=== PATIENT | male | born 1950 | race Caucasian/White ===

== ENCOUNTER 2020-09-01 06:14 | Day surgery (SDC) | payer MEDICARE, SELFPAY ==
[2020-07-29 12:37] VITALS: BMI 36.1
[2020-09-01] VITALS (9 sets, daily range): BP systolic 81–153; BP diastolic 43–89; PULSE 69–90; RESP 16; TEMP 36.1–36.3; O2SAT 92–100; BMI 35.9
[2020-09-01] MEDS: Lactated Ringers 1,000 ML 100 ML IV (06:43)
--- NOTE | 2020-09-01 06:53 | PCM.HP.STD ---
Problem List (1) Personal history of colonic polyps Status: Acute History of Present Illness Date of Admission: 09/01/20 The patient is a 69 year old M who presents for surveillance colonoscopy. 5 years ago he had a previous colonoscopy with a tubular adenoma resected. He has no complaints of abdominal pain bright red blood per rectum or melena. He has had a remote history of a superficial venous thrombosis related to a ankle injury and immobilization. He is not on any anticoagulants. He denies any family history of colon cancer. Past Medical History Medical History: Medical History (Last Updated 07/29/20 @ 12:36 by Clarisa Cervantes) Infected sebaceous cyst (Acute) L72.3, L08.9 BPH (benign prostatic hyperplasia) N40.0 DVT (deep venous thrombosis) I82.409 Diabetes E11.9 GERD (gastroesophageal reflux disease) K21.9 Hemorrhoid K64.9 Hyperlipidemia E78.5 Neuropathy G62.9 Osteoarthritis M19.90 Plantar fasciitis M72.2 Sleep apnea G47.30 HTN (hypertension) I10 Allergies No Known Allergies Allergy (Verified 08/28/20 08:15) Home Medications: Ambulatory Orders Medication Instructions Recorded fluticasone propionate 50 1 spray INTRANASAL PRN PRN 07/29/20 mcg/actuation nasal spray,suspension irbesartan 150 1 tab PO DAILY 07/29/20 mg-hydrochlorothiazide 12.5 mg tablet multivit,Ca,min-iron 8 mg-folic 1 tab PO DAILY 07/29/20 acid 200 mcg-lycopene 600 mcg tablet omeprazole 20 mg capsule,delayed 20 mg PO DAILY 07/29/20 release pravastatin 40 mg tablet 40 tab PO QHS 07/29/20 tamsulosin 0.4 mg capsule 0.4 cap PO DAILY 07/29/20 Surgical History: Surgical History (Last Updated 07/29/20 @ 12:36 by Clarisa Cervantes) History of colonoscopy Onset Date: ~2013 Z98.890 History of fasciotomy Z98.890 History of open reduction and internal fixation (ORIF) procedure Z98.890 History of right inguinal hernia repair Z98.890, Z87.19 History of tonsillectomy and adenoidectomy Z98.890 Smoking Status: Never smoker Tobacco Use: Non-smoker Review of Systems Constitutional: Denies: Fever, Night Sweats Cardiovascular: Denies: Chest Pain Respiratory: Denies: Cough, Shortness of Breath Gastrointestinal: Denies: Abdominal Pain, Melena Endocrine: Denies: Change in Body Habitus VTE Information - Inpt Only VTE Present on Admission: No - Physical Exam Vitals/I&O's: Vital Signs Temp Pulse Resp BP Pulse Ox 97.3 F L 90 16 153/83 H 94 09/01/20 06:33 09/01/20 06:33 09/01/20 06:33 09/01/20 06:33 09/01/20 06:33 Oxygen Delivery Method Room Air Weight: 257 lb 15.053 oz Body Mass Index (BMI) 35.9 General: Alert, Oriented x3, Cooperative, No apparent distress HEENT: Atraumatic Neck: Supple Lungs: Clear to auscultation, Normal air movement Cardiovascular: Regular rate, Regular Rhythm Abdomen: Bowel Sounds Present, Soft, Non Tender Extremities: No Calf Tenderness Neurological: - - Normal cognition Psych/Mental Status: Normal Affect Current Medications Lactated Ringer's () 1,000 mls @ 100 mls/hr IV .Q10H TALIA Last Admin: 09/01/20 06:43 Dose: 100 mls/hr Documented by: Assessment/Plan All Active Problems (Last Updated 07/29/20 @ 12:36 by Clarisa Cervantes) Personal history of colonic polyps (Acute) Infected sebaceous cyst (Acute) The patient presents via open access today to proceed with a surveillance colonoscopy with a personal history of colon polyps. He is aware of the technique, benefit, risk, alternatives. He has had an opportunity to ask and have questions answered. We will proceed at his discretion. John Upton M.D., F.A.C.S. Procedure Criteria Procedure Type: Elective COVID Risk Discussion: The surgeon/proceduralist and patient have discussed in detail the risk of exposure to and/or potential harm posed by the COVID-19 virus with having a surgery/procedure at this time versus the risk of delaying the surgery/procedure. It is not possible to know either the risk of delaying the surgery or procedure or chance of getting an infection with perfect accuracy, but a joint decision was made between the patient and the surgeon/proceduralist to proceed at this time with the scheduled surgery/procedure as indicated on the consent form.
--- NOTE | 2020-09-01 07:00 | COLBX_PTH ---
PATIENT: JOCE COX LOC: [facility] U#:[id number] AGE/SX: 69/M ROOM: RE09/01/[address]: Dr. John Upton MD : 1950 BED: DIS: 09/01/2020 SPEC #: [id number] RECD: 09/01/20 11:21 STATUS: RADHA ARABELLA #: [id number] KARMA: 09/01/20 07:[address]: John Upton DEPT: SURGICAL PATHOLOGY RECD BY: Lizzie Castaneda ENTERED: 09/01/20 12:16 SP TYPE: COLON BX OTHR DR: Dr. Giovany Christianson MD Tissues: Transverse colon Procedures: Surgery Specimen Level IV HEADER OPERATION: Colonoscopy - open access (MOD) PRE-OP DIAGNOSIS: Colon polyps TISSUE SUBMITTED: Proximal transverse polyp MICROSCOPIC DIAGNOSIS Proximal transverse colon polyp, biopsy: Fragments of tubular adenoma. Fragments of fecal material. SJ:kimberly 12/2/20 MICROSCOPIC DESCRIPTION Slides are reviewed. GROSS DESCRIPTION Received in fixative is one container labeled with the patient's name and designated proximal transverse polyp. The specimen consists of multiple irregular fragments of light tim soft tissue mixed with fecal material that in aggregate measure 2 x 0.3 x 0.1 cm. The specimen predominantly consists of fecal material. The specimen is totally submitted in one cassette. / SJ:kimberly 09/01/20 TC:1 CPT: 60620
--- NOTE | 2020-09-01 07:25 | OP.COLON_ITS ---
Patient Name: Rom Alvarez Procedure Date: 09/01/2020 6:51 AM Date of : 1950 Age: 69 Procedure: Colonoscopy Indications: High risk colon cancer surveillance: Personal history of colonic polyps Providers: John Upton MD Referring MD: Giovany Christianson Md Medicines: Midazolam 3 mg IV, Meperidine 100 mg IV Patient Profile: Last Colonoscopy: 5 years ago. Complications: No immediate complications. Procedure: Pre-Anesthesia Assessment: - Prior to the procedure, a History and Physical was performed, and patient medications and allergies were reviewed. The patient's tolerance of previous anesthesia was also reviewed. The risks and benefits of the procedure and the sedation options and risks were discussed with the patient. All questions were answered, and informed consent was obtained. Prior Anticoagulants: The patient has taken no previous anticoagulant or antiplatelet agents. ASA Grade Assessment: II - A patient with mild systemic disease. After reviewing the risks and benefits, the patient was deemed in satisfactory condition to undergo the procedure. After I obtained informed consent, the scope was passed under direct vision. Throughout the procedure, the patient's blood pressure, pulse, and oxygen saturations were monitored continuously. The adult colonoscope was introduced through the anus and advanced to the cecum, identified by appendiceal orifice and ileocecal valve. The colonoscopy was performed without difficulty. The patient tolerated the procedure well. The quality of the bowel preparation was good. The ileocecal valve and the appendiceal orifice were photographed. Moderate Sedation: Moderate (conscious) sedation was personally administered by the endoscopist. The following parameters were monitored: oxygen saturation, heart rate, blood pressure, and response to care. Total physician intraservice time was 15 minutes. Scope In: 7:01:39 AM Scope Withdrawal Time 0 hours 13 minutes 12 seconds Scope Out: 7:19:23 AM Total Procedure Duration Time 0 hours 17 minutes 44 seconds Findings: The perianal exam findings include non-thrombosed external hemorrhoids, non-thrombosed internal hemorrhoids and internal hemorrhoids that prolapse with straining, but spontaneously regress to the resting position (Grade II). The digital rectal exam findings include enlarged prostate. A 10 mm polyp was found in the proximal transverse colon. The polyp was sessile. The polyp was removed with a hot snare. Resection and retrieval were complete. Multiple diverticula were found in the entire colon. Impression: - Non-thrombosed external hemorrhoids, non-thrombosed internal hemorrhoids and internal hemorrhoids that prolapse with straining, but spontaneously regress to the resting position (Grade II) found on perianal exam. - Enlarged prostate found on digital rectal exam. - One 10 mm polyp in the proximal transverse colon, removed with a hot snare. Resected and retrieved. - Diverticulosis in the entire examined colon. Recommendation: - Discharge patient to home. - Resume previous diet. - Continue present medications. - Repeat colonoscopy in 5 years for surveillance based on pathology results. - Telephone my office for pathology results in 1 week. Procedure Code(s): --- Professional --- 95408, Colonoscopy, flexible; with removal of tumor(s), polyp(s), or other lesion(s) by snare technique 33096, 59, Moderate sedation services provided by the same physician or other qualified health nurse behavioral health care performing the diagnostic or therapeutic service that the sedation supports, requiring the presence of an independent trained observer to assist in the monitoring of the patient's level of consciousness and physiological status; initial 15 minutes of intraservice time, patient age 5 years or older Diagnosis Code(s): --- Professional --- Z86.010, Personal history of colonic polyps K64.1, Second degree hemorrhoids K64.4, Residual hemorrhoidal skin tags D12.3, Benign neoplasm of transverse colon (hepatic flexure or splenic flexure) K57.30, Diverticulosis of large intestine without perforation or abscess without bleeding N40.0, Benign prostatic hyperplasia without lower urinary tract symptoms CPT copyright 2017 [employer]. All rights reserved. The codes documented in this report are preliminary and upon box inspector review may be revised to meet current compliance requirements. John Upton MD 09/01/2020 7:24:48 AM This report has been signed electronically. Number of Addenda: 0 Note Initiated On: 09/01/2020 6:51 AM
--- NOTE | 2020-09-01 07:25 | OP.CCLET_ITS ---
09/01/2020 Giovany Christianson Md Re : Colonoscopy procedure for Rom Rosales Sammy This procedure was performed on Tuesday, September 01, 2020. My impressions and recommendations are as follows: Impressions : - Non-thrombosed external hemorrhoids, non-thrombosed internal hemorrhoids and internal hemorrhoids that prolapse with straining, but spontaneously regress to the resting position (Grade II) found on perianal exam. - Enlarged prostate found on digital rectal exam. - One 10 mm polyp in the proximal transverse colon, removed with a hot snare. Resected and retrieved. - Diverticulosis in the entire examined colon. Recommendations : - Discharge patient to home. - Resume previous diet. - Continue present medications. - Repeat colonoscopy in 5 years for surveillance based on pathology results. - Telephone my office for pathology results in 1 week. My findings are described in the full procedure note, which is enclosed. If I can be of further assistance, please feel free to contact me at Doctor phone number(s): Work: . Sincerely, John Upton MD 09/01/2020 7:24:48 AM This report has been signed electronically.
== END 2020-09-01 08:29 | disposition home or self-care (01) ==
LOC: EN 06:20 → AC 06:20
PROVIDERS: PCP Family Medicine; Referring Provider Family Medicine; Visit Provider Surgery
PROC: 0DJD8ZZ Inspection of Lower Intestinal Tract, Via Natural or Artificial Opening Endoscopic (ICD-10-PCS; CPT 45378; principal; 2020-09-01 06:55)
DX: Z12.11 Encounter for screening for malignant neoplasm of colon (principal); Z86.010 Personal history of colon polyps; K64.1 Second degree hemorrhoids; K64.4 Residual hemorrhoidal skin tags; D12.3 Benign neoplasm of transverse colon; K57.30 Diverticulosis of large intestine without perforation or abscess without bleeding; N40.0 Benign prostatic hyperplasia without lower urinary tract symptoms; Z86.718 Personal history of other venous thrombosis and embolism; Z79.899 Other long term (current) drug therapy; M19.90 Unspecified osteoarthritis, unspecified site; E11.9 Type 2 diabetes mellitus without complications; K21.9 Gastro-esophageal reflux disease without esophagitis; E78.5 Hyperlipidemia, unspecified; G47.30 Sleep apnea, unspecified; I10 Essential (primary) hypertension
CPT/HCPCS: 45385; 87426; 88305; 99152; 99153; C9803; J7120